=== PATIENT | female | born 1950 | race Caucasian/White ===

== ENCOUNTER 2017-02-01 21:57 | Emergency (ER) ==
--- NOTE | 2017-02-01 22:11 | ED.PDOC ---
General ED Provider: Dr. YASMANY MURILLO Chief Complaint: Rash Stated Complaint: Pateint state she is not sure what she got exposed to but at about 845 pm started having a rash with itching all over. Denies any shorness of breath. Took two bendryl but did not help. Time Seen by Physician: 22:08 Mode of Arrival: Walk-In Information Source: Patient Exam Limitations: No limitations Nursing and Triage Documentation Reviewed and Agree: Yes Skin Complaint Exam - Skin Rash/Itching Complaint/Exam Onset/Duration: 2 hours ago Symptoms Are: Still present Initial Severity: Moderate Current Severity: Severe Location: diffuse Potential Exposures: Reports: Unknown Prior Treatment: Bendaryl Aggravating: Reports: None Alleviating: Reports: None Associated Signs and Symptoms: Denies: Difficulty breathing, Fever, Chills Skin Findings: Present: Urticaria Differential Diagnoses: Allergic Reaction, Urticaria Review of Systems - Review Of Systems Constitutional: Reports: No symptoms Eyes: Reports: No symptoms Ears, Nose, Mouth, Throat: Reports: No symptoms Respiratory: Reports: No symptoms Cardiac: Reports: No symptoms GI: Reports: No symptoms : Reports: No symptoms Musculoskeletal: Reports: No symptoms Skin: Reports: Rash Neurological: Reports: No symptoms Endocrine: Reports: No symptoms Hematologic/Lymphatic: Reports: No symptoms All Other Systems: Reviewed and Negative Past Medical History - Past Medical History Endocrine: Reports: None Cardiovascular: Reports: Hypertension Respiratory: Reports: None Hematological: Reports: None Gastrointestinal: Reports: None Genitourinary: Reports: None Neuro/Psych: Reports: Depression Musculoskeletal: Reports: Other (Lupus) Cancer: Reports: Breast, Other (Thyroid ) Last Menstrual Period: NA - Surgical History General Surgical History: Reports: None - Family History Family History: Reports: None - Social History Smoking Status: Former smoker Hx Substance Use: No Alcohol Screening: Occasionally - Immunizations Tetanus Shot up to Date: Yes Physical Exam - Physical Exam Appearance: Ill-appearing Ill-appearing: Moderate Eyes: TIMOTEO, EOMI, Conjunctiva clear ENT: Ears normal, Nose normal, Oropharynx normal Respiratory: Airway patent, Breath sounds clear, Breath sounds equal, Respirations nonlabored Cardiovascular: Tachycardia GI/: Soft, Nontender, No masses, Bowel sounds normal, No Organomegaly Musculoskeletal: Normal strength, ROM intact, No edema, No calf tenderness Skin: Warm, Dry Neurological: Sensation intact, Motor intact, Reflexes intact, Cranial nerves intact, Alert, Oriented Psychiatric: Affect appropriate, Mood appropriate Critical Care Note - Critical Care Note Total Time (mins): 0 Course - Course Vital Signs: Temp Pulse Resp BP Pulse Ox 02/01/17 21:58 97.2 F L 106 H 20 120/71 94 L Departure - Departure Time of Disposition: 22:40 Disposition: HOME SELF-CARE Discharge Problem: Urticaria Instructions: Urticaria (ED) Condition: Fair Pt referred to PMD for follow-up: Yes Additional Instructions: Continue home Benadryl Follow up with PCP in 3 days Take medications as prescribed Return if worse. Prescriptions: Methylprednisolone [Medrol Dosepak] 4 mg PO DIRECTED #1 pkg Allergies/Adverse Reactions: Allergies Sulfa (Sulfonamide Antibiotics) Adverse Reaction (Verified 02/01/17 22:10) Home Medications: Ambulatory Orders Amlodipine Besylate 5 mg PO DAILY 02/01/17 Escitalopram Oxalate [Lexapro] 10 mg PO DAILY 02/01/17 Hydroxychloroquine Sulfate [Plaquenil] 400 mg PO DAILY 02/01/17 Levothyroxine Sodium [Synthroid] 137 mcg PO DAILY 02/01/17 Methylprednisolone [Medrol Dosepak] 4 mg PO DIRECTED #1 pkg 02/01/17 Disposition Discussed With: Patient, Family
[2017-02-01] MEDS ORDERED: SOLU-MEDROL 125 MG IM STA (22:12)
[2017-02-01] MEDS ORDERED: CLARITIN PO STA (22:12)
[2017-02-01] MEDS ORDERED: ADRENALIN 1:1000 SDV IM STA (22:15)
[2017-02-01 22:16] VITALS: BP 120/71; TEMP 97.2; BMI 25.8
[2017-02-01] MEDS ORDERED: EPINEPHRINE 1:1,000 AMP ONE (22:17)
== END 2017-02-01 22:56 | disposition home or self-care (01) ==
LOC: ED 21:57
DX: L50.9 Urticaria, unspecified (principal)
CPT/HCPCS: 96372; 99282

== ENCOUNTER 2023-06-12 18:09 | Observation (INO) ==
[2023-06-12 18:21] VITALS: BMI 28.8
[2023-06-12 18:56] LABS: SARS COV-2 RNA RAPID NAAT NEGATIVE (NEGATIVE)
[2023-06-12 18:57] LABS: MOLECULAR FLU A NEGATIVE BY NAAT (NEGATIVE); MOLECULAR FLU B NEGATIVE BY NAAT (NEGATIVE); RSV MOLECULAR NEGATIVE BY NAAT (NEGATIVE)
[2023-06-12] MEDS ORDERED: TORADOL IVP ONE (19:04)
[2023-06-12] MEDS ORDERED: SODIUM CHLORIDE 1,000 ML IV ONE (19:04)
[2023-06-12] MEDS ORDERED: BENADRYL IVP STA (19:04)
[2023-06-12 19:19] LABS: BASOPHILS % (AUTO) 0.3 % (0.0-3.0); EOSINOPHILS # (AUTO) 0.1 K/ul (0.0-0.7); EOSINOPHILS % (AUTO) 1.7 % (0.0-7.0); HEMOGLOBIN 10.4 g/dl (12.0-16.0); IMMATURE GRANULOCYTE % (AUTO) 0.3 % (0.0-5.0); LYMPHOCYTES # (AUTO) 0.5 K/uL (0.60-3.4); LYMPHOCYTES % (AUTO) 6.8 (10.0-50.0); MEAN CORPUSCULAR HEMOGLOBIN 28.7 pg (27.0-31.0); MEAN CORPUSCULAR HGB CONC 31.5 (31.8-35.4); MEAN CORPUSCULAR VOLUME 91.2 fl (81.0-99.0); MONOCYTES # (AUTO) 0.9 K/uL (0.4-2.0); MONOCYTES % (AUTO) 11.7 (0-10); NEUTROPHILS % (AUTO) 79.2 % (42.2-75.2); PLATELET COUNT 187 10^3/uL (140-440); RDW COEFFICIENT OF VARIATION 14.4 % (11.6-14.8); RED BLOOD COUNT 3.62 10^6/ul (4.20-5.40); WHITE BLOOD COUNT 7.54 K/ul (4.6-10.2)
[2023-06-12 19:36] LABS: ALANINE AMINOTRANSFERASE 45.1 U/L (0-35); ALBUMIN 4.22 g/dL (3.5-5.0); ALKALINE PHOSPHATASE 90.3 U/L (53-141); ASPARTATE AMINO TRANSFERASE 40.9 U/L (14-36); BILIRUBIN,TOTAL 0.6 mg/dL (0.2-1.3); BLOOD UREA NITROGEN 21.9 mg/dL (7-17); CALCIUM 9.07 mg/dL (8.4-10.2); CARBON DIOXIDE 26.2 mmol/L (22-30.0); CHLORIDE 103.3 mmol/L (98-107); CREATINE KINASE 172.5 U/L (30-135); CREATININE 1.17 mg/dL (0.60-1.30); GLUCOSE 120.7 mg/dL (74-106); POTASSIUM 4.37 mmol/L (3.5-5.1); SODIUM 134.6 mmol/L (134.5-145); TOTAL PROTEIN 6.78 g/dL (6.3-8.2)
[2023-06-12 19:48] LABS: TROPONIN I 0.019 ng/ml (0.0000-0.120)
[2023-06-12 19:51] LABS: CREATINE KINASE MB 3.82 ng/ml (0.0-2.38)
--- NOTE | 2023-06-12 20:20 | ED.PDOC ---
General ED Provider: Dr. ALIA FARLEY DO Chief Complaint: Respiratory Complaint Stated Complaint: Patient is a 73 yo F here for anxiety and sob She called ems and then drive with to the ER Patient arrives afebrile and vitally stable She denies chest pressure or chest pain She quit smoking over a decade ago, no wheezing She reports SOB and impending doom She took her albuterol nebulizer 3x back to back and felt more anxious No fever No falls or injuries No recent sick contacts Patient stable Time Seen by Provider: 06/12/23 18:45 Information Source: Patient Primary Care Provider: REMA MOREAU Nursing and Triage Documentation Reviewed and Agree: Yes What is Opioid Naive?: *Opioid Naive implies the patient is not already taking opioids or not chronically receiving opioids on a daily basis. *PRN dosing is not "usually" associated with tolerance. *Patients are at higher risk of over-sedation and aspiration. What is Opioid Tolerant?: *Opioid Tolerance implies less than the expected response to an opioid. *Acquired tolerance is defined by the patient taking 60mg of oral morphine daily (or equianalgesic dose of another opioid) for 1 week or more. *Often associated with chronic pain. *May take more than usual dose to achieve desired pain control. Review of Systems Review Of Systems Constitutional: Reports Weakness; Denies Chills or Fever Eyes: Denies Blindness or Vision change Ears, Nose, Mouth, Throat: Denies Ear pain or Nose pain Respiratory: Reports Shortness of Breath; Denies Cough or Wheezing Cardiac: Denies Chest pain, Palpitations or Syncope GI: Denies Constipated or Diarrhea : Denies Burning or Discharge Musculoskeletal: Denies Back pain or Joint swelling Skin: Denies Bruising or Change in hair/nails Neurological: Reports Anxiety; Denies Depressed Endocrine: Reports No symptoms Hematologic/Lymphatic: Reports No symptoms All Other Systems: Reviewed and Negative Physical Exam Physical Exam Appearance: Reports Well-appearing and Well-nourished Ill-appearing: Not Applicable Pain Distress: Not Applicable Eyes: Reports TIMOTEO, EOMI and Conjunctiva clear ENT: Reports Ears normal, Nose normal and Oropharynx normal Neck: Supple Respiratory: Reports Airway patent and Breath sounds clear; Denies Crackles, Rhonchi or Wheezes Cardiovascular: Reports RRR and Pulses normal GI/: Reports Soft and Nontender Musculoskeletal: Reports Normal strength and ROM intact Skin: Reports Warm and Dry Neurological: Reports Sensation intact and Motor intact Psychiatric: Reports Anxious; Denies Depressed Interpretation EKG Interpretation EKG Interpretation By: ED Physician Time of EKG #1: 19:22 Interpretation: NSR rate 90 no stemi qt wnl Course Course 06/12/23 19:13 06/12/23 19:13 Orders, Labs, Meds: Lab Review 06/12/23 06/12/23 06/12/23 18:24 19:13 20:54 WBC 7.54 RBC 3.62 L Hgb 10.4 L Hct 33.0 L MCV 91.2 MCH 28.7 MCHC 31.5 L RDW Coeff of Zuri 14.4 Plt Count 187 Immature Gran % (Auto) 0.3 Neut % (Auto) 79.2 H Lymph % (Auto) 6.8 L Amite % (Auto) 11.7 H Eos % (Auto) 1.7 Baso % (Auto) 0.3 Neut # (Auto) 6.0 Lymph # (Auto) 0.5 L Amite # (Auto) 0.9 Eos # (Auto) 0.1 Baso # (Auto) 0.0 Immature Gran # (Auto) 0.0 Sodium 134.6 Potassium 4.37 Chloride 103.3 Carbon Dioxide 26.2 Anion Gap 9.47 BUN 21.9 H Creatinine 1.17 Estimated GFR (MDRD) 45.00 BUN/Creatinine Ratio 18.71 Glucose 120.7 H Calcium 9.07 Total Bilirubin 0.60 AST 40.9 H ALT 45.1 H Alkaline Phosphatase 90.3 Total Creatine Kinase 172.5 H CK-MB (CK-2) 3.820 H CK-MB (CK-2) % 2.2100 Troponin I 0.019 0.025 NT-Pro-B Natriuret Pep 7700 H Total Protein 6.78 Albumin 4.22 Globulin 2.56 Albumin/Globulin Ratio 1.64 D-Dimer 565.85 H Influ A Molecular Assay Negative by naat Influ B Molecular Assay Negative by naat RSV Antigen Negative by naat SARS CoV-2 RNA Rapid SHELLEY Negative Orders Category Date Time Status ADMIT OBSERVATION [PLACE PATIENT OBSERVATION] .TO ADMISSION 06/12/23 21:55 Active MEDSURG (MONITORED BED) OBSERVATION [PLACE PATIENT OBSERVATION] .TO MEDSURG ADMISSION 06/12/23 22:00 Active (MONITORED BED) ECHOCARDIOGRAM 2D-M MODE Routine CARDIO 06/12/23 21:56 Ordered EKG-(ED ONLY) Stat CARDIO 06/12/23 19:04 Completed ACTIVITY .Early Mobilization for VTE Prevention CARE 06/12/23 21:55 Active INTAKE & OUTPUT Q8HR CARE 06/12/23 21:56 Active NPO REMINDER: IMAGING ONCE CARE 06/12/23 20:01 Active TELEMETRY MONITORING TELE CARE 06/12/23 21:58 Active TELEMETRY MONITORING TELE CARE 06/12/23 22:00 Active VITAL SIGNS Q4HR CARE 06/12/23 21:57 Active WEIGH PATIENT 0600 CARE 06/12/23 21:56 Active FLUID RESTRICTION 1800 ML DIETARY 06/13/23 Breakfast Ordered CBC W/ AUTO DIFF DAILY@0600 LAB 06/13/23 06:00 Ordered CBC W/ AUTO DIFF DAILY@0600 LAB 06/14/23 06:00 Ordered CBC W/ AUTO DIFF Stat LAB 06/12/23 19:13 Completed COMPREHENSIVE METABOLIC PANEL DAILY@0600 LAB 06/13/23 06:00 Ordered COMPREHENSIVE METABOLIC PANEL DAILY@0600 LAB 06/14/23 06:00 Ordered COMPREHENSIVE METABOLIC PANEL Stat LAB 06/12/23 19:13 Completed CREATINE KINASE Stat LAB 06/12/23 19:13 Completed D-DIMER Stat LAB 06/12/23 19:13 Completed FLU A & B MOLECULAR [FLU A/B MOLECULAR] Stat LAB 06/12/23 18:24 Completed PROBNP ED [NT-PROBNP(ED)] Stat LAB 06/12/23 20:54 Completed RSV Stat LAB 06/12/23 18:24 Completed SARS COV-2 RNA RAPID SHELLEY Stat LAB 06/12/23 18:24 Completed TROPONIN I Stat LAB 06/12/23 19:13 Completed TROPONIN I Stat LAB 06/12/23 20:54 Completed Acetaminophen [Tylenol] Meds 06/12/23 21:58 Ordered 650 mg PO Q4H PRN Amlodipine Besylate [Norvasc] Meds 06/12/23 20:56 Discontinued 5 mg PO ONCE STA Diphenhydramine Inj [Benadryl] Meds 06/12/23 19:04 Discontinued 25 mg IVP ONCE STA Hydralazine HCl Meds 06/12/23 21:17 Discontinued 10 mg IVP ONCE ONE Hydralazine HCl Meds 06/12/23 22:00 Ordered 10 mg IVP Q6H PRN Hydralazine HCl Meds 06/12/23 21:20 Discontinued 20 mg .ROUTE .STK-MED ONE Ketorolac Tromethamine [Toradol] Meds 06/12/23 19:04 Discontinued 30 mg IVP ONCE ONE Ondansetron HCl/Pf [Zofran 4 mg/2 ml] Meds 06/12/23 21:58 Ordered 4 mg IVP Q6H PRN Sodium Chloride 0.9% [Sodium Chloride] 1,000 ml Meds 06/12/23 19:[address] CHEST PE PROTOCOL Stat RADS 06/12/23 20:[address] HEAD W/O CONTRAST Stat RADS 06/12/23 19:05 Completed Medications Generic Name Dose Route Start Last Admin Trade Name Freq PRN Reason Stop Dose Admin Acetaminophen 650 mg 06/12/23 21:58 Acetaminophen 325 Mg Tablet PO Q4H PRN FEVER/PAIN Hydralazine HCl 10 mg 06/12/23 22:00 Hydralazine Hcl 20 Mg/Ml Sdv IVP Q6H PRN Hypertension Ondansetron HCl 4 mg 06/12/23 21:58 Ondansetron Hcl/Pf 4 Mg/2 Ml Sdv IVP Q6H PRN Nausea / Vomiting Discontinued Medications Generic Name Dose Route Start Last Admin Trade Name Freq PRN Reason Stop Dose Admin Amlodipine Besylate 5 mg 06/12/23 20:56 Amlodipine Besylate 5 Mg Tablet PO 06/12/23 20:57 ONCE STA Diphenhydramine HCl 25 mg 06/12/23 19:04 06/12/23 19:54 Diphenhydramine Inj 50 Mg/Ml Vial IVP 06/12/23 19:05 25 mg ONCE STA Administration Hydralazine HCl 10 mg 06/12/23 21:17 06/12/23 21:21 Hydralazine Hcl 20 Mg/Ml Sdv IVP 06/12/23 21:18 10 mg ONCE ONE Administration Sodium Chloride 1,000 mls @ 1,000 mls/hr 06/12/23 19:04 06/12/23 19:50 Sodium Chloride IV 06/12/23 20:03 1,000 mls/hr BOLUS ONE Administration Ketorolac Tromethamine 30 mg 06/12/23 19:04 06/12/23 19:51 Ketorolac Tromethamine 30 Mg/Ml Vial IVP 06/12/23 19:05 30 mg ONCE ONE Administration Vital Signs: Temp Pulse Resp BP Pulse Ox 06/12/23 18:17 99.0 F 98 24 H 196/[address] PE added for elevated d dimer, repeat trop for elevated troponin that was not positive MDM: Patient is a 73 yo F here for sob and elevated bp with headache Patient afebrile and vitally stable Hx from patient and chart review by me Exam reassuring 3+ labs and 3+images reviewed by me Hospitalist consulted agrees to admission for work up of CHF new, and BL pleural effusions BP improved with hydralazine Headache improved with therapies BP lowered if monitors on privacy mode Patient quite anxious WDX: Anxiety, SOB, pleural effusions, CHF exacerbation, sob acute high complexity DDX: I considered PE, ACS, sepsis but these are less likely SDOH: Patient has best chance to improve with diuresis, echo and further work up All questions answered Patient admitted stable GUERA 177/92 after hydralazine No chest pain Discharge Plan Discharge Patient Disposition: PLACED OBSERVATION Discharge Problem: Elevated brain natriuretic peptide (BNP) level, Elevated blood pressure reading, Acute dyspnea, Headache, Pleural effusion Did you review [place] [employer] SUPER[employer]OR for ALL controlled substances?: Not Applicable ED Provider: ALIA FARLEY Condition: Good Physician Progress Note: []
--- NOTE | 2023-06-12 20:34 | CT ---
EXAM: CT OF THE HEAD WITHOUT CONTRAST History: Headache. Technique: Multiplanar CT images through the head were obtained without the administration of IV con trast FINDINGS: The visualized paranasal sinuses and mastoid air cells are clear in general. No acute trena varial abnormalities. Intracranially the ventricular and cisternal spaces are normal in size, shape and configuration for a patient of this age. No dominant mass or midline shift. No hydrocephalous. No acute intracranial hemorrhage or abnormal extraaxial fluid collections. Impression: Normal head CT All CT scans are performed using dose optimization techniques as appropriate to the performed exam an d include at least one of the following: Automated exposure control, adjustment of the mA and/or kV according t o size, and the use of iterative reconstruction technique.
--- NOTE | 2023-06-12 20:46 | CT ---
EXAM: CTA CHEST WITH CONTRAST HISTORY: Elevated D-dimer antepartum. Shortness of breath. COMPARISON: None TECHNIQUE: Multi-slice transaxial helical images are acquired through the chest according to an triston ogram protocol. 3-D volume images are provided. All CT scans are performed using dose optimization techniques as appropriate to the performed exam and includes at least one of the following: Automate d exposure control, adjustment of the mA and/or kV according to size, and the use of iterative recons truction technique. CONTRAST: Intravenous FINDINGS: The pulmonary ateries are free of intraluminal filling defects. The aorta is atherosclero tic. No aortic dissection. The ascending aorta is minimally ectatic to 31.4 mm. The heart is mildl y enlarged. No pericardial effusion. Left anterior descending and circumflex coronary calcification s are noted. Moderate pleural effusions layer dependently. No suspicious lymphadenopathy. The nond ependent pulmonary veins are dilated. The interlobular septa are diffusely thickened. There are jass eolar densities in the lower lungs. There are surgical clips in the left axilla. The solid abdominal organs are grossly normal in their visualized portions of the upper abdomen. No suspicious osteolytic or osteoblastic bone lesions. No acute bony abnormalities are evident. A ri ght reverse shoulder arthroplasty is noted. IMPRESSION: - Probable congestive heart failure with moderate pleural effusions and pulmonary edema. Multifocal pneumonia less likely. - No pulmonary emboli. - Mild cardiomegaly. - No aortic dissection. All CT scans are performed using dose optimization techniques as appropriate to the performed exam an d include at least one of the following: Automated exposure control, adjustment of the mA and/or kV according t o size, and the use of iterative reconstruction technique.
[2023-06-12] MEDS ORDERED: NORVASC PO STA (20:56)
[2023-06-12] MEDS ORDERED: HYDRALAZINE HCL IVP ONE (21:17)
[2023-06-12] MEDS ORDERED: HYDRALAZINE HCL ONE (21:20)
[2023-06-12] MEDS ORDERED: ZOFRAN 4 MG/2 ML IVP PRN (21:58)
[2023-06-12] MEDS ORDERED: TYLENOL PO PRN (21:58)
[2023-06-12] MEDS ORDERED: HYDRALAZINE HCL IVP PRN (22:00)
[2023-06-12] MEDS ORDERED: ATIVAN IVP ONE (23:11)
[2023-06-12] MEDS: LASIX IVP SCH (23:25)
[2023-06-13 05:27] LABS: BASOPHILS % (AUTO) 0.3 % (0.0-3.0); EOSINOPHILS # (AUTO) 0.1 K/ul (0.0-0.7); EOSINOPHILS % (AUTO) 1.7 % (0.0-7.0); HEMATOCRIT 30.5 % (37.0-47.0); HEMOGLOBIN 9.7 g/dl (12.0-16.0); IMMATURE GRANULOCYTE % (AUTO) 0.3 % (0.0-5.0); LYMPHOCYTES # (AUTO) 0.6 K/uL (0.60-3.4); LYMPHOCYTES % (AUTO) 8.9 (10.0-50.0); MEAN CORPUSCULAR HGB CONC 31.8 (31.8-35.4); MONOCYTES # (AUTO) 0.8 K/uL (0.4-2.0); MONOCYTES % (AUTO) 12.3 (0-10); NEUTROPHILS % (AUTO) 76.5 % (42.2-75.2); PLATELET COUNT 170 10^3/uL (140-440); RDW COEFFICIENT OF VARIATION 14.3 % (11.6-14.8); RED BLOOD COUNT 3.35 10^6/ul (4.20-5.40); WHITE BLOOD COUNT 6.53 K/ul (4.6-10.2)
[2023-06-13 05:40] LABS: ALANINE AMINOTRANSFERASE 40.4 U/L (0-35); ALBUMIN 3.88 g/dL (3.5-5.0); ASPARTATE AMINO TRANSFERASE 35.8 U/L (14-36); BILIRUBIN,TOTAL 0.69 mg/dL (0.2-1.3); BLOOD UREA NITROGEN 19.6 mg/dL (7-17); CALCIUM 8.5 mg/dL (8.4-10.2); CARBON DIOXIDE 28.5 mmol/L (22-30.0); CHLORIDE 102.5 mmol/L (98-107); CREATININE 1.02 mg/dL (0.60-1.30); GLUCOSE 112.3 mg/dL (74-106); POTASSIUM 4.23 mmol/L (3.5-5.1); SODIUM 134.8 mmol/L (134.5-145); TOTAL PROTEIN 6.47 g/dL (6.3-8.2)
[2023-06-13] MEDS: LASIX IVP SCH ×3 (08:58→21:01)
--- NOTE | 2023-06-13 12:39 | ECHO2D ---
Date of Exam: 06/13/2023 Ordering Physician: HOSPITALIST--ALOK MOREAU Room #: 121 Reason for Echo: CHF, DYSPNEA, PLEURAL EFFUSION, CARDIOMEGALY M-Mode Normal Adult Results LV Dimensions Normal Adult Results AoV Opening excursions >1.6 >1.6 LVEDD-base- 3.5-5.8 5.9 Ao root dimensions 2.0-3.7 3.2 LVESD-base- 3.1-4.6 L. Atrium dimensions 1.9-3.8 5.4 Post. Wall thickness 0.8-1.1 1.2 IV septum (thickness) 0.7-1.2 1.2 Post. Wall excursion 0.72-1.3 0.9 Septal motion 0.9 Systolic motion R. Ventricular cavity 1.5-2.0 4.0 LVEF 60% 45-50% Paradoxical septal wall motion NORMAL 2-D : DILATED BOTH ATRIA AND VENTRICLES--VALVES NORMAL-NO EFFUSION, NO THROMBUS M-MODE: MV: NORMAL AV: NORMAL TV: NORMAL PV: CHAMBER SIZE: ENLARGED LEFT ATRIA, RIGHT ATRIA, AND LEFT VENTRICLE CAVITIES WALL MOTION: MILDLY HYPOKINETIC LEFT VENTRICLE PERICARDIUM: NORMAL INTERPRETATION: 1. BORDERLINE LEFT VENTRICLE HYPERTROPHY 2. ENLARGED BOTH ATRIA AND VENTRICLES 3. MILDLY HYPOKINETIC LEFT VENTRICLE WITH EJECTION FRACTION 45% - 50% 4. MODERATE MITRAL REGURGITATION ON COLOR FLOW SCREENING MTDD
[2023-06-13] MEDS ORDERED: REQUIP PO PRN (13:28)
[2023-06-13] MEDS ORDERED: POLYETHYLENE GLYCOL PO PRN (13:28)
[2023-06-13] MEDS ORDERED: MIRALAX PO PRN (13:47)
--- NOTE | 2023-06-13 14:13 | PCM ---
Date of Service Date Seen by Provider: 06/13/23 Time Seen by Provider: 09:15 Admit Day/Time Admission Date: 06/12/23 Reason for Admission Chief Complaint: PLURAL EFFUSION, HYPERTENSIVE, CIRSIS, DYSPNEA Hospital Provider Hospital Provider: PHOEBE BLANDON, [facility] [place] Primary Care Physician Primary Care Physician: REMA MOREAU History of Present Illness History of Present Illness: 73 yo female presented to the ER with shortness of breath. Patient reports feeling SOB over the last couple days and worse on exertion. Denies any fever, chills, congestion, chest pain, N/V/D. Patient was found to have cardiomegaly wi th bilateral pleural effusions. BNP elevated >7000. No previous hx of CHF. Has followed with Joan at [facility] in the past for mitral valve regurgitation. Not surgical at this point and is monitoring. Last saw on 02/21/2023. Echo at that time showed preserved EF and no further work-up was necessary. Patient reports that her BP has been out of control over the last couple months and her PCP has been adjusting her medications frequently. Does report lower extremity edema from time to time but "it goes away". Case Discussed With Case Discussed With: Patient's case was discussed with the ER Physicians, Dr. Avila [facility] Medical History Anxiety F41.9 - Anxiety disorder, unspecified (ICD-10) Depression F32.A - Depression, unspecified (ICD-10) Restless leg syndrome G25.81 - Restless legs syndrome (ICD-10) Lupus M32.9 - Systemic lupus erythematosus, unspecified (ICD-10) Hypertension I10 - Essential (primary) hypertension (ICD-10) Cancer thyroid C80.1 - Malignant (primary) neoplasm, unspecified (ICD-10) Family History Other No known health problems Social History Smoking and tobacco status: Former smoker Allergies Allergies Allergy/AdvReac Type Severity Reaction Status Date / Time Sulfa (Sulfonamide AdvReac Unknown Verified 06/12/23 23:15 Antibiotics) Current Medications Home Medications escitalopram oxalate 10 mg tablet (Lexapro) 10 mg PO DAILY 02/01/17 [History Confirmed 06/13/23 Last Taken 06/12/23] hydroxychloroquine 200 mg tablet (Plaquenil) 200 mg PO BID 02/01/17 [History Confirmed 06/13/23 Last Taken 06/12/23 08:00] levothyroxine 137 mcg tablet (Synthroid) 137 mcg PO DAILY 02/01/17 [History Confirmed 06/13/23 Last Taken 06/12/23] albuterol 90 mcg/actuation aerosol inhaler 2 mcg inhalation Q4HR PRN SHORTNESS OF BREATH/WHEEZING 06/13/23 [History Confirmed 06/13/23 Last Taken Unknown] budesonide 160 mcg-glycopyr 9 mcg-formot 4.8 mcg/actuation HFA inhaler (Breztri Aerosphere) 2 inh inhalation BID 06/13/23 [History Confirmed 06/13/23 Last Taken Unknown] buspirone 15 mg tablet 15 mg PO BID PRN anxiety 06/13/23 [History Confirmed 06/13/23 Last Taken Unknown] clonidine HCl 0.1 mg tablet 0.1 mg PO Q4H PRN hypertension 06/13/23 [History Confirmed 06/13/23 Last Taken Unknown] fluticasone propionate 50 mcg/actuation nasal spray,suspension (24 Hour Allergy Relief) 2 spray intranasal DAILY 06/13/23 [History Confirmed 06/13/23 Last Taken 06/12/23] hydrochlorothiazide 25 mg tablet 25 mg PO QAM 06/13/23 [History Confirmed 06/13/23 Last Taken 06/12/23] ketorolac 10 mg tablet 10 mg PO Q6H PRN MODERATE PAIN 06/13/23 [History Confirmed 06/13/23 Last Taken Unknown] polyethylene glycol 3350 17 gram/dose oral powder (ClearLax) 17 g PO DAILY PRN constipation 06/13/23 [History Confirmed 06/13/23 Last Taken 06/12/23] promethazine 25 mg tablet 25 mg PO Q4H PRN N/V 06/13/23 [History Confirmed 06/13/23 Last Taken Unknown] ropinirole 0.25 mg tablet See Rx Instructions PO QDAY PRN RESTLESS LEGS 06/13/23 [History Confirmed 06/13/23 Last Taken 06/12/23] ropinirole 1 mg tablet 1 mg PO BID RESTLESS LEGS 06/13/23 [History Confirmed 06/13/23 Last Taken Unknown] verapamil 240 mg tablet,extended release 240 mg PO QHS 06/13/23 [History Confirmed 06/13/23 Last Taken 06/11/23 21:00 240 mg] Home Acetaminophen (Acetaminophen 325 Mg Tablet) 650 mg PO Q4H PRN PRN Reason: FEVER/PAIN Empagliflozin (Empagliflozin 10 Mg Tablet) 10 mg PO DAILY RICARDO Escitalopram Oxalate (Escitalopram Oxalate 10 Mg Tablet) 10 mg PO DAILY [facility] Fluticasone Propionate (Fluticasone Propionate 16 Gm Nasal [place]) 2 spray TRINI DAILY [facility] Furosemide (Furosemide Inj 40 Mg/4 Ml Vial) 40 mg IVP Q8HR RICARDO Hydralazine HCl (Hydralazine Hcl 20 Mg/Ml Sdv) 10 mg IVP Q6H PRN PRN Reason: Hypertension Hydroxychloroquine Sulfate (Hydroxychloroquine Sulfate 200 Mg Tablet) 200 mg PO BID [facility] Levothyroxine Sodium (Levothyroxine Sodium 112 Mcg Tablet) 112 mcg PO QDAC2 RICARDO Levothyroxine Sodium (Levothyroxine Sodium 25 Mcg Tablet) 25 mcg PO QDAC2 [facility] Metoprolol Succinate (Metoprolol Succinate 25 Mg Tab.Er.24h) 25 mg PO DAILY RICARDO Last Admin: 06/13/23 14:14 Dose: 25 mg Non-Formulary Medication (Kngbwqrgvc-Onpgdcql-Phondfqfmc [Breztri Aerosphere]) 2 inh IH BID [facility] Ondansetron HCl (Ondansetron Hcl/Pf 4 Mg/2 Ml Sdv) 4 mg IVP Q6H PRN PRN Reason: Nausea / Vomiting Polyethylene Glycol (Polyethylene Glycol 17 Gm Powd.Pack) 17 gm PO DAILY PRN PRN Reason: Constipation Last Admin: 06/13/23 14:14 Dose: 17 gm Ropinirole HCl (Ropinirole Hcl 0.25 Mg Tablet) 0.25 - 0.5 mg PO DAILY PRN PRN Reason: RESTLESS LEG SYNDROME Last Admin: 06/13/23 14:13 Dose: 0.25 mg Ropinirole HCl (Ropinirole Hcl 1 Mg Tablet) 1 - 2 mg PO BEDTIME [facility] Sacubitril/Valsartan (Sacubitril/Valsartan 1 Each Tablet) 1 each PO BID [facility] Sodium Chloride (0.9% Sodium Chloride 10 Ml Disp.Syrin) 1 syr IVF PRN PRN PRN Reason: Maintain IV Patency Last Admin: 06/13/23 09:00 Dose: 1 syr Sodium Chloride (0.9% Sodium Chloride 10 Ml Disp.Syrin) 1 syr IVF Q8HR [facility] Last Admin: 06/13/23 13:16 Dose: 1 syr Spironolactone (Spironolactone 25 Mg Tablet) 25 mg PO DAILY [facility] Verapamil HCl (Verapamil Hcl 120 Mg Tablet.Er) 240 mg PO BEDTIME [facility] Discontinued Medications Amlodipine Besylate (Amlodipine Besylate 5 Mg Tablet) 5 mg PO ONCE STA Stop: 06/12/23 20:57 Last Admin: 06/12/23 22:51 Dose: Not Given Diphenhydramine HCl (Diphenhydramine Inj 50 Mg/Ml Vial) 25 mg IVP ONCE STA Stop: 06/12/23 19:05 Last Admin: 06/12/23 19:54 Dose: 25 mg Furosemide (Furosemide Inj 20 Mg/2 Ml Vial) 20 mg IVP TID [facility] Last Admin: 06/13/23 08:58 Dose: 20 mg Hydralazine HCl (Hydralazine Hcl 20 Mg/Ml Sdv) 10 mg IVP ONCE ONE Stop: 06/12/23 21:18 Last Admin: 06/12/23 21:21 Dose: 10 mg Sodium Chloride (Sodium Chloride) 1,000 mls @ 1,000 mls/hr IV BOLUS ONE Stop: 06/12/23 20:03 Last Infusion: 06/12/23 20:15 Dose: 0 mls/hr Ketorolac Tromethamine (Ketorolac Tromethamine 30 Mg/Ml Vial) 30 mg IVP ONCE ONE Stop: 06/12/23 19:05 Last Admin: 06/12/23 19:51 Dose: 30 mg Lorazepam (Lorazepam Inj 2 Mg/Ml Vial) 1 mg IVP ONCE ONE Stop: 06/12/23 23:12 Last Admin: 06/12/23 23:25 Dose: 1 mg Opioid Naive vs. Tolerant Does Patient Take Opioids?: No Is Patient Opioid Naive?: Yes What is Opioid Naive?: *Opioid Naive implies the patient is not already taking opioids or not chronically receiving opioids on a daily basis. *PRN dosing is not "usually" associated with tolerance. *Patients are at higher risk of over-sedation and aspiration. Is Patient Opioid Tolerant?: No What is Opioid Tolerant?: *Opioid Tolerance implies less than the expected response to an opioid. *Acquired tolerance is defined by the patient taking 60mg of oral morphine daily (or equianalgesic dose of another opioid) for 1 week or more. *Often associated with chronic pain. *May take more than usual dose to achieve desired pain control. Review of Systems Constitutional: Reports No symptoms Head: Reports Normocephalic and Atraumatic Eyes: Reports No symptoms Ears: Reports No symptoms Nose: Reports No symptoms Mouth: Reports No symptoms Throat: Reports No symptoms Cardiovascular: Reports Edema Respiratory: Reports Shortness of air Gastrointestinal: Reports No symptoms Genitourinary: Reports No Symptoms Musculoskeletal: Reports No symptoms Endocrine: Reports No symptoms Hematology: Reports No symptoms Immunology: Reports No symptoms Neurological: Reports No symptoms Psychiatric: Reports No symptoms Physical examination Most Recent Vital Signs: Most Recent Vital Signs Temperature 97.7 F 06/13/23 10:00 Temperature Source Tympanic 06/13/23 10:00 Temperature Source Infrared 06/12/23 18:17 Pulse Rate 93 06/13/23 10:00 Respiratory Rate 18 06/13/23 10:00 Blood Pressure 173/98 H 06/13/23 10:00 Blood Pressure Mean 123 06/13/23 10:00 Blood Pressure Left Arm 142/82 06/12/23 23:58 Blood Pressure Location Right Arm 06/13/23 10:00 Blood Pressure Position Sitting 06/13/23 10:00 O2 Sat by Pulse Oximetry 100 06/13/23 10:00 Oxygen Delivery Method Nasal Cannula 06/13/23 13:53 Oxygen Flow Rate 2 06/13/23 10:26 Height 5 ft 8 in 06/12/23 23:58 Weight 188 lb 1 oz 06/13/23 04:48 Telemetry Type Remote Telemetry 06/13/23 13:00 Telemetry Monitoring Continues 06/13/23 13:00 Telemetry Heart Rate 99 06/13/23 13:00 Telemetry SPO2 96 06/13/23 07:00 EKG [place] Interval 0.14 06/13/23 13:00 EKG QRS Interval 0.04 L 06/13/23 13:00 Telemetry Strip Reading SR 06/13/23 13:00 Appearance: Positive No Apparent Distress, Alert and Oriented x3 and Ill- Appearing Skin: Positive Warm and Good Turgor HEENT: Positive Normocephalic and Atraumatic Neck: Positive Supple and Midline Trachea Chest/Lungs: Positive Symmetrical With Equal Breath Sounds, Good Air Movement all 4 Lung [place] and Other (crackles to bilateral lung bases) Heart: Positive RRR and Pulses Normal GI/: Positive Soft, Nontender, Bowel Sounds Normal and No Distention Musculoskeletal: Positive Not Examined Extremities: Positive Edema (+2 pitting edema BLE), Intact Peripheral Pulses, Stable Joints Without Laxity and Good ROM in All Joints Neurological: Positive Sensation Intact, Motor intact, Reflexes Intact, Alert, Oriented and Muscle Strength 5/5 in Upper and Lower Extremities Bilaterally Labs This Visit Labs This Visit: Labs This Visit 06/12/23 06/12/23 06/12/23 18:24 19:13 20:54 WBC 7.54 RBC 3.62 L Hgb 10.4 L Hct 33.0 L MCV 91.2 MCH 28.7 MCHC 31.5 L RDW Coeff of Zuri 14.4 Plt Count 187 Immature Gran % (Auto) 0.3 Neut % (Auto) 79.2 H Lymph % (Auto) 6.8 L [place] % (Auto) 11.7 H Eos % (Auto) 1.7 Baso % (Auto) 0.3 Neut # (Auto) 6.0 Lymph # (Auto) 0.5 L [place] # (Auto) 0.9 Eos # (Auto) 0.1 Baso # (Auto) 0.0 Immature Gran # (Auto) 0.0 Sodium 134.6 Potassium 4.37 Chloride 103.3 Carbon Dioxide 26.2 Anion Gap 9.47 BUN 21.9 H Creatinine 1.17 Estimated GFR (MDRD) 45.00 BUN/Creatinine Ratio 18.71 Glucose 120.7 H Calcium 9.07 Total Bilirubin 0.60 AST 40.9 H ALT 45.1 H Alkaline Phosphatase 90.3 Total Creatine Kinase 172.5 H CK-MB (CK-2) 3.820 H CK-MB (CK-2) % 2.2100 Troponin I 0.019 0.025 NT-Pro-B Natriuret Pep 7700 H Total Protein 6.78 Albumin 4.22 Globulin 2.56 Albumin/Globulin Ratio 1.64 D-Dimer 565.85 H Influ A Molecular Assay Negative by naat Influ B Molecular Assay Negative by naat RSV Antigen Negative by naat SARS CoV-2 RNA Rapid SHELLEY Negative 06/13/23 05:05 WBC 6.53 RBC 3.35 L Hgb 9.7 L Hct 30.5 L MCV 91.0 MCH 29.0 MCHC 31.8 RDW Coeff of Zuri 14.3 Plt Count 170 Immature Gran % (Auto) 0.3 Neut % (Auto) 76.5 H Lymph % (Auto) 8.9 L [place] % (Auto) 12.3 H Eos % (Auto) 1.7 Baso % (Auto) 0.3 Neut # (Auto) 5.0 Lymph # (Auto) 0.6 [place] # (Auto) 0.8 Eos # (Auto) 0.1 Baso # (Auto) 0.0 Immature Gran # (Auto) 0.0 Sodium 134.8 Potassium 4.23 Chloride 102.5 Carbon Dioxide 28.5 Anion Gap 8.03 BUN 19.6 H Creatinine 1.02 Estimated GFR (MDRD) 53.00 BUN/Creatinine Ratio 19.21 Glucose 112.3 H Calcium 8.50 Total Bilirubin 0.69 AST 35.8 ALT 40.4 H Alkaline Phosphatase 76.0 Total Creatine Kinase CK-MB (CK-2) CK-MB (CK-2) % Troponin I NT-Pro-B Natriuret Pep Total Protein 6.47 Albumin 3.88 Globulin 2.59 Albumin/Globulin Ratio 1.49 D-Dimer Influ A Molecular Assay Influ B Molecular Assay RSV Antigen SARS CoV-2 RNA Rapid [facility] Imaging Imaging: EXAM: CTA CHEST WITH CONTRAST HISTORY: Elevated D-dimer antepartum. Shortness of breath. COMPARISON: None TECHNIQUE: Multi-slice transaxial helical images are acquired through the chest according to an angiogram protocol. 3-D volume images are provided. All CT scans are performed using dose optimization techniques as appropriate to the performed exam and includes at least one of the following: Automated exposure control, adjustment of the mA and/or kV according to size, and the use of iterative reconstruction technique. CONTRAST: Intravenous FINDINGS: The pulmonary ateries are free of intraluminal filling defects. The aorta is atherosclerotic. No aortic dissection. The ascending aorta is minimally ectatic to 31.4 mm. The heart is mildly enlarged. No pericardial effusion. Left anterior descending and circumflex coronary calcifications are noted. Moderate pleural effusions layer dependently. No suspicious lymphadenopathy. The nondependent pulmonary veins are dilated. The interlobular septa are diffusely thickened. There are alveolar densities in the lower lungs. There are surgical clips in the left axilla. The solid abdominal organs are grossly normal in their visualized portions of the upper abdomen. No suspicious osteolytic or osteoblastic bone lesions. No acute bony abnormalities are evident. A right reverse shoulder arthroplasty is noted. IMPRESSION: - Probable congestive heart failure with moderate pleural effusions and pulmonary edema. Multifocal pneumonia less likely. - No pulmonary emboli. - Mild cardiomegaly. - No aortic dissection. Review Statement Review Statement: I have independently reviewed and interpreted the labs/EKGs/imaging that were ordered by the ER provider. I have reviewed all outside records that are available currently in our EMR including imaging/notes/labs from previous visits. Plan Plan: 1. Acute Hypoxic Respiratory Failure in the setting of New onset CHF - wean oxygen as tolerated, see #2 for plan 2. New Onset Diastolic Heart Failure - echo completed this am and showed EF of 45-50%, not on HF regimen, started on lasix 20 mg Q8H initially - increased to 40 mg due to lack of diuresis, starting entresto, jardiance, metoprolol, and spirolactone, I&O, daily weight, 1800 mL fluid restriction, follow with Cardiology on discharge 3. Mitral Regurgitation - chronic, has followed with cardiology previously, requesting new one, adoption social worker sending referral today 4. Hypertension - uncontrolled, PCP has adjusted regimen recently, takes clonidine prn, continue verapamil, starting on regimen above, will further adjust during stay if needed, hydralazine prn for SBP>160 or DBP>90 5. SLE - chronic, continue home medications 6. Restless Leg Syndrome - chronic, continue home medications DVT Prophylaxis: Up with assist Time Spent: Greater than 80 minutes spent with patient, 50% of the time spent with this patient was devoted to counseling and coordination of care. [facility] Plannin minutes spent discussing advance care planning. Disposition: Admit to: Med/Surg Observation Full Code Discussed Plan of Care with Dr. Massimo Srivastava Medications Medication Orders: Medications Ordered Category Date Time Status 0.9 % Sodium Chloride [Saline Flush] Meds 06/13/23 08:59 Active 1 syr IVF PRN PRN 0.9 % Sodium Chloride [Saline Flush] Meds 06/13/23 13:00 Active 1 syr IVF Q8HR Acetaminophen [Tylenol] Meds 06/12/23 21:58 Active 650 mg PO Q4H PRN Empaglifozin [Jardiance] Meds 06/14/23 09:00 Active 10 mg PO DAILY Escitalopram Oxalate [Lexapro] Meds 06/14/23 09:00 Active 10 mg PO DAILY Fluticasone Propionate [Flonase] Meds 06/14/23 09:00 Active 2 spray TRINI DAILY Furosemide [Lasix] Meds 06/12/23 23:15 Stop Req 20 mg IVP TID Furosemide [Lasix] Meds 06/13/23 14:30 Ordered 40 mg IVP Q8H Hydralazine HCl Meds 06/12/23 22:00 Active 10 mg IVP Q6H PRN Hydroxychloroquine Sulfate [Plaquenil] Meds 06/13/23 21:00 Active 200 mg PO BID Levothyroxine Sodium [Synthroid] Meds 06/14/23 06:00 Active 112 mcg PO QDAC2 Levothyroxine Sodium [Synthroid] Meds 06/14/23 06:00 Active 25 mcg PO QDAC2 Metoprolol Succinate [Toprol Xl] Meds 06/13/23 13:55 Active 25 mg PO DAILY Ondansetron HCl/Pf [Zofran 4 mg/2 ml] Meds 06/12/23 21:58 Active 4 mg IVP Q6H PRN Polyethylene Glycol 3350 [Miralax] Meds 06/13/23 13:47 Active 17 gm PO DAILY PRN Ropinirole HCl [Requip] Meds 06/13/23 13:28 Active 0.25 - 0.5 mg PO DAILY PRN Ropinirole HCl [Requip] Meds 06/13/23 21:00 Active 1 - 2 mg PO BEDTIME Sacubitril/Valsartan [Entresto 24 mg-26 mg Tablet] Meds 06/13/23 21:00 Active 1 each PO BID Spironolactone [Aldactone] Meds 06/14/23 09:00 Active 25 mg PO DAILY Verapamil HCl [Calan Sr] Meds 06/13/23 21:00 Active 240 mg PO BEDTIME [id number] [Breztri Aerosphere] Meds 06/13/23 21:00 Active 2 inh IH BID
[2023-06-13] MEDS: TOPROL XL PO SCH (14:14)
[2023-06-13] MEDS ORDERED: LASIX IVP SCH (14:30)
[2023-06-13] MEDS ORDERED: REQUIP PO SCH (21:00)
[2023-06-13] MEDS ORDERED: CALAN SR PO SCH (21:00)
[2023-06-13] MEDS: ENTRESTO 24 MG-26 MG TABLET PO SCH (21:01)
[2023-06-13] MEDS: PLAQUENIL PO SCH (21:01)
[2023-06-13] MEDS: NON-FORMULARY MEDICATION (Budesonide-Glycopyr-Formoterol [Breztri Aerosphere] 160-9-4.8 mc IH SCH (21:17)
[2023-06-14] MEDS: LASIX IVP SCH (05:32)
[2023-06-14 05:36] LABS: BASOPHILS % (AUTO) 0.4 % (0.0-3.0); EOSINOPHILS # (AUTO) 0.2 K/ul (0.0-0.7); EOSINOPHILS % (AUTO) 5.2 % (0.0-7.0); HEMATOCRIT 31.6 % (37.0-47.0); HEMOGLOBIN 10.1 g/dl (12.0-16.0); IMMATURE GRANULOCYTE % (AUTO) 0.2 % (0.0-5.0); LYMPHOCYTES # (AUTO) 0.7 K/uL (0.60-3.4); LYMPHOCYTES % (AUTO) 14.2 (10.0-50.0); MEAN CORPUSCULAR HEMOGLOBIN 28.7 pg (27.0-31.0); MEAN CORPUSCULAR VOLUME 89.8 fl (81.0-99.0); MONOCYTES # (AUTO) 0.7 K/uL (0.4-2.0); PLATELET COUNT 153 10^3/uL (140-440); RDW COEFFICIENT OF VARIATION 14.2 % (11.6-14.8); RED BLOOD COUNT 3.52 10^6/ul (4.20-5.40); WHITE BLOOD COUNT 4.66 K/ul (4.6-10.2)
[2023-06-14 05:51] LABS: ALANINE AMINOTRANSFERASE 35.8 U/L (0-35); ALBUMIN 3.69 g/dL (3.5-5.0); ALKALINE PHOSPHATASE 74.7 U/L (53-141); ASPARTATE AMINO TRANSFERASE 30.4 U/L (14-36); BILIRUBIN,TOTAL 0.67 mg/dL (0.2-1.3); BLOOD UREA NITROGEN 20.2 mg/dL (7-17); CALCIUM 8.82 mg/dL (8.4-10.2); CARBON DIOXIDE 29.5 mmol/L (22-30.0); CHLORIDE 100.7 mmol/L (98-107); CREATININE 1.09 mg/dL (0.60-1.30); GLUCOSE 99.2 mg/dL (74-106); POTASSIUM 3.61 mmol/L (3.5-5.1); TOTAL PROTEIN 6.35 g/dL (6.3-8.2)
[2023-06-14] MEDS ORDERED: SYNTHROID PO SCH ×2 (06:00)
[2023-06-14] MEDS: PLAQUENIL PO SCH (08:09)
[2023-06-14] MEDS: TOPROL XL PO SCH (08:10)
[2023-06-14] MEDS: ENTRESTO 24 MG-26 MG TABLET PO SCH (08:12)
[2023-06-14] MEDS: NON-FORMULARY MEDICATION (Budesonide-Glycopyr-Formoterol [Breztri Aerosphere] 160-9-4.8 mc IH SCH (08:26)
[2023-06-14] MEDS ORDERED: ALDACTONE PO SCH (09:00)
[2023-06-14] MEDS ORDERED: JARDIANCE PO SCH (09:00)
[2023-06-14] MEDS ORDERED: FLONASE NAS SCH (09:00)
[2023-06-14] MEDS ORDERED: LEVOTHYROXINE 137 MCG PO SCH (09:00)
[2023-06-14] MEDS ORDERED: LEXAPRO PO SCH (09:00)
[2023-06-14 10:45] VITALS: BP 160/83; PULSE 82; RESP 16; TEMP 97.5
--- NOTE | 2023-06-14 11:12 | DCSUM ---
Admission Date Admission Date: 06/12/23 Discharge Date Discharge Date: 06/14/23 Admission Diagnosis Admission Diagnosis: 1. Acute Hypoxic Respiratory Failure in the setting of New onset CHF 2. New Onset Diastolic Heart Failure 3. Mitral Regurgitation 4. Hypertension 5. SLE 6. Restless Leg Syndrome Discharge Diagnosis Discharge Diagnosis: 1. Acute Hypoxic Respiratory Failure in the setting of New onset CHF - Resolved 2. New Onset Diastolic Heart Failure - Improved, stable 3. Mitral Regurgitation - Chronic, stable 4. Hypertension - Chronic, stable 5. SLE - Chronic, stable 6. Restless Leg Syndrome - Chronic, stable Hospital Provider Hospital Provider: PHOEBE BLANDON, [facility] Primary Care Physician Primary Care Physician: REMA MOREAU Summary of History and Physical Summary of History and Physical: 73 yo female presented to the ER with shortness of breath. Patient reports feeling SOB over the last couple days and worse on exertion. Denies any fever, chills, congestion, chest pain, N/V/D. Patient was found to have cardiomegaly with bilateral pleural effusions. BNP elevated >7000. No previous hx of CHF. Has followed with Joan at [facility] in the past for mitral valve regurgitation. Not surgical at this point and is monitoring. Last saw on 02/21/2023. Echo at that time showed preserved EF and no further work-up was necessary. Patient reports that her BP has been out of control over the last couple months and her PCP has been adjusting her medications frequently. Does report lower extremity edema from time to time but "it goes away". Hospital Course Subjective: During stay, patient received lasix IV Q8H. Echo was completed and showed her chronic mitral valve regurg as well as LVH with EF of 45-50%. Last echo completed on February of 2023 with normal EF. Started on entresto, spironolactone, jardiance, and metoprolol. Diuresed well. She was requiring 2L of oxygen on admission and has been weaned off maintaining an O2 sat above 92%. Patient does have home oxygen at home that she wears prn and 2L at bedtime. BP was uncontrolled on admission and required doses of hydralazine. BP improved with new CHF medications. Stopped HCTZ due to starting spironolactone. No other medication changes unless otherwise listed. Patient requested new breaker up and referral was sent by social media editor yesterday. Education provided on fluid restriction, daily weight, and taking medications as prescribed. Appearance: Pleasant, No Apparent Distress and Alert HEENT: MMM, Supple and No JVD CVS: No Murmur and No Rubs Abdomen: Soft, Non-Tender and No Distention Respiratory: No Dyspnea Extremities: Other (+1 pitting edema, improved from yesterday) Vital Signs: Most Recent Vital Signs Temperature 97.5 F L 06/14/23 10:00 Temperature Source Temporal Artery Scan 06/14/23 10:00 Temperature Source Infrared 06/12/23 18:17 Pulse Rate 82 06/14/23 10:00 Respiratory Rate 16 06/14/23 10:00 Blood Pressure 160/83 H 06/14/23 10:00 Blood Pressure Mean 108 06/14/23 10:00 Blood Pressure Left Arm 142/82 06/12/23 23:58 Blood Pressure Location Right Arm 06/14/23 10:00 Blood Pressure Position Supine 06/14/23 05:12 O2 Sat by Pulse Oximetry 95 06/14/23 10:00 Oxygen Delivery Method Nasal Cannula 06/14/23 10:47 Oxygen Flow Rate 2 06/14/23 05:26 Height 5 ft 8 in 06/13/23 15:28 Weight 188 lb 06/14/23 05:14 Telemetry Type Remote Telemetry 06/14/23 07:00 Telemetry Monitoring Continues 06/14/23 07:00 Telemetry Heart Rate 88 06/14/23 07:00 Telemetry SPO2 94 06/14/23 07:00 EKG NH Interval 0.09 L 06/14/23 07:00 EKG QRS Interval 0.06 06/14/23 07:00 Telemetry Strip Reading SR 06/14/23 07:00 Lab Results Last 24 Hours: 06/14/23 04:55 WBC 4.66 RBC 3.52 L Hgb 10.1 L Hct 31.6 L MCV 89.8 MCH 28.7 MCHC 32.0 RDW Coeff of Zuri 14.2 Plt Count 153 Immature Gran % (Auto) 0.2 Neut % (Auto) 65.0 Lymph % (Auto) 14.2 [place] % (Auto) 15.0 H Eos % (Auto) 5.2 Baso % (Auto) 0.4 Neut # (Auto) 3.0 Lymph # (Auto) 0.7 [place] # (Auto) 0.7 Eos # (Auto) 0.2 Baso # (Auto) 0.0 Immature Gran # (Auto) 0.0 Sodium 135.0 Potassium 3.61 Chloride 100.7 Carbon Dioxide 29.5 Anion Gap 8.41 BUN 20.2 H Creatinine 1.09 Estimated GFR (MDRD) 49.00 BUN/Creatinine Ratio 18.53 Glucose 99.2 Calcium 8.82 Total Bilirubin 0.67 AST 30.4 ALT 35.8 H Alkaline Phosphatase 74.7 Total Protein 6.35 Albumin 3.69 Globulin 2.66 Albumin/Globulin Ratio 1.38 Discharge Instructions Discharge Planning: Discharge Planning > 40 minutes If patient is discharged with left ventricular systolic dysfunction: NA Discharged with a beta yahaira? [] If no, why not? [] Discharged with an inderjit/arb? [] If no, why not? [] DX: ACUTE DIASTOLIC HEART FAILURE RX: ENTRESTO, JARDIANCE, SPIRONOLACTONE, METOPROLOL, LASIX 2L FLUID RESTRICTION, CARDIAC DIET ACTIVITY TOLERATED FOLLOW-UP WITH PCP NEXT WEEK CARDIOLOGY WILL CALL WITH APPOINTMENT Discharge Medications: Medications at Discharge (Home Meds & RX) escitalopram oxalate 10 mg tablet (Lexapro) 10 mg PO DAILY 02/01/17 hydroxychloroquine 200 mg tablet (Plaquenil) 200 mg PO BID 02/01/17 levothyroxine 137 mcg tablet (Synthroid) 137 mcg PO DAILY 02/01/17 albuterol 90 mcg/actuation aerosol inhaler 2 mcg inhalation Q4HR PRN SHORTNESS OF BREATH/WHEEZING 06/13/23 budesonide 160 mcg-glycopyr 9 mcg-formot 4.8 mcg/actuation HFA inhaler (Breztri Aerosphere) 2 inh inhalation BID 06/13/23 buspirone 15 mg tablet 15 mg PO BID PRN anxiety 06/13/23 clonidine HCl 0.1 mg tablet 0.1 mg PO Q4H PRN hypertension 06/13/23 fluticasone propionate 50 mcg/actuation nasal spray,suspension (24 Hour Allergy Relief) 2 spray intranasal DAILY 06/13/23 hydrochlorothiazide 25 mg tablet 25 mg PO QAM 06/13/23 ketorolac 10 mg tablet 10 mg PO Q6H PRN MODERATE PAIN 06/13/23 polyethylene glycol 3350 17 gram/dose oral powder (ClearLax) 17 g PO DAILY PRN constipation 06/13/23 promethazine 25 mg tablet 25 mg PO Q4H PRN N/V 06/13/23 ropinirole 0.25 mg tablet See Rx Instructions PO QDAY PRN RESTLESS LEGS 06/13/23 ropinirole 1 mg tablet 1 mg PO .HS RESTLESS LEGS 06/13/23 verapamil 240 mg tablet,extended release 240 mg PO QHS 06/13/23 Discharge Plan Discharge Discharge Orders: Discharge Patient (ONCE); Ordered 06/14/23 Ordered By: LOLA CORBETT Activity Restrictions/Additional Instructions: Discharge home today Cardiac diet (low salt) with 2 liter fluid restriction Activity as tolerated Follow-up with PCP as scheduled. YOU HAVE BEEN REFERRED TO [facility]. THEY SHOULD REACH OUT TO YOU TO SCHEDULE AN APPOINTMENT, HOWEVER IF YOU DO NOT HEAR FROM THEM WITHIN A FEW DAYS WE ENCOURAGE YOU TO CONTACT THEM. THEIR PHONE NUMBER IS [phone]. Medication Changes Stop taking: hydrochlorothiazide New: (sent to [facility]) Lasix 20 mg daily Spironolactone 25 mg daily Jardiance 10 mg daily Metoprolol succinate 25 mg daily Entresto 24-26 mg twice a day Instructions: Heart Failure (GEN), Hypertension (GEN) Patient Disposition: HOME WITH FAMILY CARE Prescriptions: New Jardiance 10 mg Tablet 10 mg PO DAILY Qty: 30 0RF metoprolol succinate [Toprol XL] 25 mg Tablet Extended Release 24 Hr 25 mg PO DAILY Qty: 30 0RF Entresto 24-26 mg Tablet 1 tab PO BID Qty: 60 0RF spironolactone 25 mg Tablet 25 mg PO DAILY Qty: 30 0RF furosemide 20 mg tablet 20 mg PO DAILY Qty: 30 0RF Continued levothyroxine [Synthroid] 137 MCG tablet 137 mcg PO DAILY hydroxychloroquine [Plaquenil] 200 MG tablet 200 mg PO BID escitalopram oxalate [Lexapro] 10 MG tablet 10 mg PO DAILY ropinirole 1 mg tablet 1 mg PO .HS Patient Comments: TAKE 1-2 TABS AT BEDTIME FOR RESTLESS LEGS Rx Instructions: 1-2 TABS AT BEDTIME verapamil 240 mg tablet extended release 240 mg PO QHS Patient Comments: TAKE 1 TABLET BY MOUTH EVERY DAY AT BEDTIME buspirone 15 mg tablet 15 mg PO BID PRN (Reason: anxiety) Patient Comments: TAKE 1 TABLET BY MOUTH TWICE DAILY NEEDED FOR ANXIETY clonidine HCl 0.1 mg tablet 0.1 mg PO Q4H PRN (Reason: hypertension) Patient Comments: TAKE 1 TABLET BY MOUTH EVERY 4 HOURS NEEDED FOR HIGH BLOOD PRESSURE promethazine 25 mg tablet 25 mg PO Q4H PRN (Reason: N/V) Patient Comments: TAKE 1 TABLET BY MOUTH EVERY 4 HOURS NEEDED FOR NAUSEA OR VOMITING polyethylene glycol 3350 [ClearLax] 17 gram/dose powder 17 g PO DAILY PRN (Reason: constipation) albuterol 90 mcg/actuation aerosol 2 mcg inhalation Q4HR PRN (Reason: SHORTNESS OF BREATH/WHEEZING) Rx Instructions: 2 PUFFS EVERY 4 HOURS NEEDED Breztri Aerosphere 160-9-4.8 mcg/actuation HFA aerosol inhaler 2 inh inhalation BID fluticasone propionate [24 Hour Allergy Relief] 50 mcg/actuation spray,suspension 2 spray intranasal DAILY Rx Instructions: administer into each nostril ropinirole 0.25 mg tablet See Rx Instructions PO QDAY PRN (Reason: RESTLESS LEGS) Rx Instructions: 1-2 TABS DURING DAY NEEDED FOR RESTLESS LEGS orally daily PRN; ketorolac 10 mg tablet 10 mg PO Q6H PRN (Reason: MODERATE PAIN) Qty: 30 0RF Patient Comments: TAKE 1 TABLET BY MOUTH EVERY 6 HOURS Discontinued hydrochlorothiazide 25 mg tablet 25 mg PO QAM Patient Comments: TAKE 1 TABLET BY MOUTH EVERY DAY Did you review [place] [employer] ADVISER for ALL controlled substances?: No Discussed opioids are addictive and Narcan is available by prescription or from pharmacy.: No Condition: Good Referrals: REMA MOREAU [Primary Care Provider] - 06/18/23 9:50 am
== END 2023-06-14 11:50 | disposition home or self-care (01) ==
LOC: MEDSURG B 18:09 → ED 18:09 → MEDSURG B 23:52
PROVIDERS: ADMIT Hospitalist; ATTEND Nurse Practitioner Family
DX: I16.9 Hypertensive crisis, unspecified; I10 Essential (primary) hypertension; Z79.899 Other long term (current) drug therapy; J96.01 Acute respiratory failure with hypoxia; I50.30 Unspecified diastolic (congestive) heart failure; R53.1 Weakness; Z20.822 Contact with and (suspected) exposure to COVID-19; M32.9 Systemic lupus erythematosus, unspecified; I34.0 Nonrheumatic mitral (valve) insufficiency; F41.9 Anxiety disorder, unspecified; G25.81 Restless legs syndrome; Z51.81 Encounter for therapeutic drug level monitoring; R51.9 Headache, unspecified; J90 Pleural effusion, not elsewhere classified; I51.7 Cardiomegaly